=== PATIENT | female | born 2000 | race Caucasian/White ===

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

== ENCOUNTER 2019-10-06 23:13 | Emergency (ER) | payer OTHER ==
[~2019-10-06] VITALS: Ht 162.6 cm; Wt 104.3 kg
[2019-10-06 23:23] VITALS: BP 136/92
--- NOTE | 2019-10-06 23:27 | NUR ---
PT AMBULATED TO LOBBY TO A/W BED
--- NOTE | 2019-10-06 23:47 | NUR ---
19F PRESENTS TO ED WITH C/O CONSTIPATION X 6 DAYS. STATES THAT THEY HAVE NOT A BOWEL MOVEMENT FOR 2 DAYS. LAST REPORTED BM WAS MINIMAL AND PEBBLE TEXTURE. REPORTS RLQ ABD PAIN THAT IS RADIATING TO LOWER BACK. RR EVEN AND UNLABORED. DENIES N/V/D. PMHX: CONSTIPATION RX: MIRALAX NEGATIVE FOR COVID SCREEN. WEARING MASK.
--- NOTE | 2019-10-06 23:47 | NUR ---
PT TAKEN TO BED 12.
[2019-10-06 23:52] VITALS: BP 136/92
[2019-10-07] MEDS ORDERED: MAGNESIUM CITRATE 300 ML BTL PO ONE (00:25)
--- NOTE | 2019-10-07 01:10 | NUR ---
PT RETURN FROM RADIOLOGY
== END 2019-10-07 01:48 | disposition home or self-care (01) ==
LOC: MED 23:13
DX: K59.00 Constipation, unspecified (principal)
CPT/HCPCS: 74018; 81025; 99283

== ENCOUNTER 2021-08-03 00:16 | Emergency (ER) | payer OTHER ==
[~2021-08-03] VITALS: Ht 165.1 cm; Wt 108.9 kg
[2021-08-03 00:29] VITALS: BP 107/70
--- NOTE | 2021-08-03 00:57 | NUR ---
20 Y/O FEMALE BIB FAMILY FROM HOME, C/O DIZZINESS AND NAUSEA X3 DAYS. PT STATES THE NAUSEA IS RELIEVED WHEN SHE LAYS ON HER RIGHT SIDE. HX OF SAME AND PREVIOUSLY DX WITH DEHYDRATION. -V/D, + HEADACHE (5/10), A/OX4, GCS-15; DENIES FEVER OR COUGH. TOOK TYLENOL FOR HEADACHE WITH SOME RELIEF AT 2300 LAST NIGHT. PT SEATED IN BED W/ HOB RAISED, BED IN LOWEST SETTING, AND RAILS UP X1. MOTHER AT BEDSIDE. HX: "CRINKLE IN HER INTESTINE" ALLERGY: PCN DENIES MEDS
--- NOTE | 2021-08-03 01:29 | NUR ---
ER MD AT BEDSIDE EXAMINING PT
[2021-08-03] MEDS ORDERED: IBUPROFEN 800 MG TAB PO ONE (01:40)
[2021-08-03] MEDS ORDERED: ONDANSETRON 4 MG TAB PO ONE (01:40)
[2021-08-03] MEDS ORDERED: ONDA-188 SL (03:17)
[2021-08-03 03:51] VITALS: BP 107/70
--- NOTE | 2021-08-03 03:53 | NUR ---
Patient discharged with v/s stable. Written and verbal after care instructions given and explained. Patient alert, oriented and verbalized understanding of instructions. Ambulatory with steady gait. All questions addressed prior to discharge. ID band removed. Patient advised to follow up with PMD. Rx of ZOFRAN given. Patient educated on indication of medication including possible reaction and side effects. Opportunity to ask questions provided and answered. VSS, A/OX4, AMBULATORY, UNLABORED BREASTHING, AND CALM DEMEANOR.
== END 2021-08-03 03:50 | disposition home or self-care (01) ==
LOC: MED 00:16
DX: R42 Dizziness and giddiness (principal); Z88.0 Allergy status to penicillin; Z79.899 Other long term (current) drug therapy
CPT/HCPCS: 81002; 81025; 99283; Q0162

== ENCOUNTER 2022-05-08 17:51 | Emergency (ER) | payer OTHER ==
[~2022-05-08] VITALS: Ht 162.6 cm; Wt 112.0 kg
[~2022-05-08 17:51] MED LIST: ONDA-188 SL
[2022-05-08 17:52] VITALS: BP 148/96
--- NOTE | 2022-05-08 18:00 | NUR ---
PT AMB TO BED 11
--- NOTE | 2022-05-08 18:01 | NUR ---
21/F WALKED IN C/O LEFT SIDED FACIAL NUMBNESS AND TINGLING ONSET 30 MINS AGO. PT DENIES BLURRY VISION OR SLURRED SPEECH. PT PRESENTS WITH EQUAL PROCUREMENT MANAGER STRENGTHS, NO FACIAL DROOP NOTED. NO FOCAL DEFICIT NOTED, VITALS STABLE. PMH: DENIES
[2022-05-08] MEDS ORDERED: PRED20TA5 PO (18:27)
[2022-05-08] MEDS ORDERED: ACYC400T14 PO (18:27)
== END 2022-05-08 18:30 | disposition home or self-care (01) ==
LOC: MED 17:51
DX: G51.0 Bell's palsy (principal); Z88.0 Allergy status to penicillin
CPT/HCPCS: 99283